=== PATIENT | male | born 1950 | race Hispanic/Latino ===

== ENCOUNTER 2019-10-27 13:43 | Outpatient (CLI) | payer MEDICARE, MEDICAID ==
--- NOTE | 2019-10-27 20:07 | RAD ---
CHEST TWO VIEWS: Date: 10-27-2019 Comparison: None available. FINDINGS: No major infiltrate or effusion was seen. At most, there may be a little prominence of the right lowe r lobe markings, but the finding is equivocal. There is no congestion. The mediastinum showed no acut e changes. The left pulmonary artery is a little larger than the right but probably still within limi tations of normal. IMPRESSION: No definite acute findings. Equivocal prominence of right basilar markings. POS: HOME
== END 2019-10-27 13:44 | disposition home or self-care (01) ==
LOC: MERGE 13:43 → BURRAD 13:43
PROVIDERS: ATTEND Family Medicine
DX: Z09 Encounter for follow-up examination after completed treatment for conditions other than malignant neoplasm (principal); Z72.0 Tobacco use
CPT/HCPCS: 71046